=== PATIENT | female | born 1980 | race Caucasian/White ===

== ENCOUNTER 2016-11-02 11:52 | Emergency (ER) | payer OTHER ==
[2016-11-02 12:08] VITALS: BP 111/78; PULSE 81; RESP 18; TEMP 98.4; O2SAT 96
--- NOTE | 2016-11-02 12:27 | UCPHY ---
H & P Time Seen by Provider: 11/02/16 12:27 Patient Type: Established HPI/ROS: Chief complaint. Sore throat HPI. 36-year-old female with sore throat for 4-5 days and now hoarse since last night. No fever. No ear pain. Slight congestion. Slight cough. No shortness of breath. She notes pain in the right side of her chest with swallowing but not with breathing. ROS Constitutional. no fever/chills, no weakness Eyes. no problems with vision ENT. Sore throat and hoarse Cardiovascular. no chest pain Respiratory. no shortness of breath, no cough Abdominal. no abdominal pain, no nausea/vomiting, no diarrhea . no problems urinating MS. no calf pain/swelling, no neck/back pain, no joint pain Skin. no rash Lymph. no swollen glands Neuro. no headache, no dizziness, no difficulty walking or with speech Past Medical/Surgical History: Healthy Social History: Single, nonsmoker, no alcohol Smoking Status: Never smoked Physical Exam: General Appearance: Alert pleasant well-developed female slightly hoarse mild distress vital signs are stable Eyes: Pupils equal and round no pallor or injection. ENT, tympanic membranes are normal. Pharynx mildly injected without exudate. No evidence for peritonsillar abscess. No stridor. Respiratory: There are no retractions, lungs are clear to auscultation. Cardiovascular: Regular rate and rhythm. Gastrointestinal: Abdomen is soft and nontender, no masses, bowel sounds normal. Neurological: Awake and alert, sensory and motor exams grossly normal. Skin: Warm and dry, no rashes. Musculoskeletal: Neck is supple nontender. Extremities symmetrical, full range of motion. Psychiatric: Patient is oriented X 3, there is no agitation. Constitutional: Initial Vital Signs Temperature (C) 36.9 C 11/02/16 12:06 Heart Rate 81 11/02/16 12:06 Respiratory Rate 18 11/02/16 12:06 Blood Pressure 111/78 11/02/16 12:06 O2 Sat (%) 96 11/02/16 12:06 O2 Delivery Mode Room Air Allergies/Adverse Reactions: Penicillins Allergy (Verified 11/02/16 11:59) Unknown Home Medications: Medication Instructions Recorded Propranolol HCl [Inderal 20mg (*)] 11/02/16 Medical Decision Making Procedures: Rapid strep screen negative ED Course/Re-evaluation: Patient is given Decadron by mouth. Patient and I talked about laboratory evaluation, treatment plan including criteria for return importance of follow-up further evaluation. She expresses understanding and agreement Differential Diagnosis: This appears to be laryngitis. I think it is a viral infection. Her strep screen is negative. No evidence for peritonsillar abscess. She is speaking in full sentences and swallowing secretions. - Data Points Laboratory Results: 11/02/16 11/02/16 Unknown 12:05 Group A Strep Screen NEGATIVE (NEGATIVE) Group A Strep DNA Pending Departure - Departure Disposition: Home, Routine, Self-Care Clinical Impression: Laryngitis Condition: Good Instructions: Laryngitis (ED) Additional Instructions: Drink plenty of fluids and stay hydrated. Tylenol 1000 mg every 4-6 hours, ibuprofen 600 mg every 6 hours as needed for discomfort or fever. Return for worsening symptoms. Recheck in 2-3 days if not improving Referrals: Yesika Jerez PA [Primary Care Provider] - 2-3 days, if not improved - PQRS PQRS Measurement: 134: Depression screening and followup, PRIME MD-PHQ2 (12 years and older) Over the last 2 weeks, how often have you been bothered by any of the following problems? 1. Feeling down, depressed, or hopeless? 2. Little interest or pleasure in doing things? Patient answered no to both 1 and 2 130: Documentation of medications. Reviewed all patient medications, doses, route and frequency. 226: Do you smoke? No.
[2016-11-02] MEDS ORDERED: DEXAMETHASONE 4 MG TAB PO ONE (12:35)
== END 2016-11-02 12:48 | disposition home or self-care (01) ==
LOC: CED 11:52
DX: J02.9 Acute pharyngitis, unspecified (principal)
CPT/HCPCS: 87880-PO; 99214-PO; G0463-PO